=== PATIENT | male | born 1975 ===

== ENCOUNTER 2021-01-10 14:51 | Observation (INO) | payer SELFPAY ==
[~2021-01-10] VITALS: Ht 167.6 cm; Wt 97.5 kg
[2021-01-10 15:25] LABS: BASOPHILS ABSOLUTE AUTO 0.07 K/mm3 (0.00-0.23); BASOPHILS PERCENT AUTO 0 % (0-2); EOSINOPHILS PERCENT AUTO 0 % (0-6); Hematocrit 47.3 % (37.0-53.0); Hemoglobin 16.5 g/dL (13.5-17.5); IMMATURE GRAN ABSOLUTE AUTO 0.19 K/mm3 (0.00-0.10); IMMATURE GRAN PERCENT AUTO 1 % (0-1); LYMPHOCYTES ABSOLUTE AUTO 0.63 K/mm3 (0.84-5.20); LYMPHOCYTES PERCENT AUTO 3 % (21-46); MONOCYTES ABSOLUTE AUTO 0.96 K/mm3 (0.16-1.47); MONOCYTES PERCENT AUTO 4 % (4-13); Mean Corpuscular HGB 30.6 pg (26.0-34.0); Mean Corpuscular HGB Conc 34.9 g/dL (31.5-36.5); Mean Corpuscular Volume 88 fL (80-100); Mean Platelet Volume 9.5 fL (9.1-12.4); NEUTROPHILS ABSOLUTE AUTO 21.93 K/mm3 (1.96-9.15); NEUTROPHILS PERCENT AUTO 92 % (41-73); Platelet Count 247 K/mm3 (150-400); RDW Coefficient Variation 12.2 % (11.7-14.2); RDW Standard Deviation 39.1 fL (35.1-46.3); White Blood Cell Count 23.78 K/mm3 (4.00-11.30)
[2021-01-10 15:42] LABS: Alanine Aminotransfer (ALT/SGP 50 U/L (12-78); Albumin, Blood 3.4 g/dL (3.4-5.0); Albumin/Globulin Ratio 0.8 (0.8-1.8); Alk Phos 117 U/L (50-136); Anion Gap 6 mmol/L (6-16); Aspartate Aminotrans (AST/SGOT 22 U/L (12-37); Bilirubin, Total 1.1 mg/dL (0.1-1.0); Blood Urea Nitrogen 12 mg/dL (8-24); Bun/Creatinine Ratio 15.2 (12.0-20.0); CO2, Blood 24 mmol/L (21-32); Chloride, Blood 107 mmol/L (98-108); Creatinine, Blood 0.79 mg/dL (0.60-1.20); Globulin, Blood 4.1 g/dL (2.2-4.0); Glomerular Filtration Rate >60 (60-); Glucose, Blood 180 mg/dL (70-99); Potassium, Blood 3.8 mmol/L (3.5-5.5); Sodium, Blood 137 mmol/L (136-145); Total Protein, Blood 7.5 g/dL (6.4-8.2)
[2021-01-10 17:55] LABS: SARS-Cov-2 (COVID-19) PCR, MMC NEGATIVE (NEGATIVE)
--- NOTE | 2021-01-10 20:10 | NUR ---
PT ARRIVEDTO ROOM 210 FROM PACU. PT ALERT, REPS PAIN LESLIE. PT ORIENTED TO ROOM/CALL LIGHT. PT OFFERRED TRANSLATION PHONE, PT REQUESTING TO USE PHONE FOR HX QUESTIONS. WILL OBTAIN PHONE PER PT REQ.
--- NOTE | 2021-01-10 20:46 | NUR ---
ADMIT ASSESSMENT AND HX COMPLETTED W/ASSISTANCE OF TRANSLATION PHONE. PT REP PAIN LESLIE 2-3/10, DECLINES NEED FOR PAIN MEDS, PT DENIES N/V. PT ORIENTED TO ROOM.CALL LIGHT, ORDERS AND TX PLAN REV W/PT, PT VERBALIZES UNDERSTANDING VIA TRANSLATION PHONE.
--- NOTE | 2021-01-11 06:40 | NUR ---
POD 1 S/P LAP APPY. PT VSS T/O NIGHT. DRESSINGS CDI, ABD SOFT TO PALP. PT REP PAIN MINIMAL, DECLINED NEED FOR PAIN MEDS. PT LESLIE A SMALL AMT OF CL PO, NO N/V. PT VOIDED DARK NATALIYA URINE W/O DIFFICULTY. IVF AND ABX CONT PER ORDERS. PT IS ABLE TO UNDERSTAND SMALL AMT OF [place], CAN MAKE NEEDS, KNOWN; [employer] PHONE USED PRN T/O NIGHT.
[2021-01-11] MEDS ORDERED: HYDR1TAB94 PO (10:22)
--- NOTE | 2021-01-11 11:17 | NUR ---
DC'D HOME, DC INSTRUCTIONS GIVEN, VERBALIZED UNDERSTANDING.
--- NOTE | 2021-01-11 11:18 | NUR ---
IV'S X2 ON R HAND DC'D, [facility] INTACT.
== END 2021-01-11 11:01 | disposition home or self-care (01) ==
LOC: ER 14:51 → SURS 14:52
PROVIDERS: Physician Assistant; ADMIT Surgery
PROC: 0DTJ4ZZ Resection of Appendix, Percutaneous Endoscopic Approach (ICD-10-PCS; principal; 2021-01-10 17:30)
DX: K35.80 Unspecified acute appendicitis (principal); Z87.891 Personal history of nicotine dependence
CPT/HCPCS: 36415; 74176; 80053; 83690; 85025; 96365; 96366; 96375; 96376; 99285-25; G0378; J0295; J0330; J1100; J1885; J2270; J2405; J2704; J3010; J7120; U0004